=== PATIENT | female | born 1960 | race Caucasian/White ===

== ENCOUNTER 2021-11-07 06:00 | Day surgery (SDC) | payer OTHER ==
[~2021-11-07] VITALS: Ht 173 cm; Wt 84.0 kg
[~2021-11-07 06:00] MED LIST: ACETAMINOPHEN500 M1 PO; ACID CONTROLLER20 MG PO; ASPIRIN EC81 MG PO; BACLOFEN TOP; CENTRUM ADULTS1 EACH PO; CLARITIN10 MG PO; ESTRACE42.5 GM TOP; FLONASE ALLER15.8 ML; GABAP TOP; LIDOC TOP; LISINOPRIL 20MG20 MG PO; MELOXICAM7.5 MG PO; PEPCID AC20 MG PO; PROPRANOLOL HCL10 MG PO; ZETIA10 MG PO
[2021-11-08 06:31] LABS: BASOPHIL 0.1 % (0-2); EOSINOPHIL 0 % (0-5); HCT 31.6 % (37.0-47.0); HGB 10.3 g/dl (12.5-16.0); LYMPHOCYTE 11.9 % (15-48); MCH 32.6 pg (25.0-31.0); MCHC 32.6 g/dL (32.0-36.0); MONOCYTE 8.6 % (0-12); MPV 10.8 fL (6.0-9.5); NRBC 0; PLT 198 K/uL (150-400); RBC 3.16 M/uL (4.20-5.40); RDW 12.6 % (11.5-14.0); WBC 13.5 K/uL (4.0-10.5)
[2021-11-08 06:52] LABS: BUN/CREAT RATIO (CALC) 14.1 RATIO; CREATININE 0.85 mg/dL (0.51-0.95); POTASSIUM 4.1 mmol/L (3.5-5.1)
[2021-11-08] MEDS ORDERED: FEOSOL325 MG PO (08:56)
== END 2021-11-08 10:50 | disposition home or self-care (01) ==
LOC: FAS 06:00 → FMS 09:44 → FAS 11-08 10:50
PROVIDERS: Orthopaedic Surgery
DX: M17.0 Bilateral primary osteoarthritis of knee (principal); I10 Essential (primary) hypertension; E78.5 Hyperlipidemia, unspecified; K21.9 Gastro-esophageal reflux disease without esophagitis; Z79.82 Long term (current) use of aspirin; Z79.899 Other long term (current) drug therapy
CPT/HCPCS: 36415; 73560; 80048; 85025; 86850; 86900; 86901; 94010; 94760; 97110; 97162; 97165; 97530-GP; 97535; C1713; C1776; J0171; J0697; J1100; J1170; J1200; J1885; J2250; J2270; J2405; J2704; J2795; J3010; J7120